=== PATIENT | male | born 1935 | race Caucasian/White ===

== ENCOUNTER 2021-06-28 06:34 | Day surgery (SDC) | payer MEDICARE ==
[2021-06-26 11:11] LABS: BASOPHILS % (AUTO) 0.7 % (0.0-5.0); EOSINOPHILS % (AUTO) 3.2 % (0.0-8.0); HEMATOCRIT 43.3 % (42-54); LYMPHOCYTES % (AUTO) 23.8 % (21.0-51.0); MEAN CORPUSCULAR HEMOGLOBIN 28.1 pg (27.0-33.0); MEAN CORPUSCULAR HGB CONC 31.4 g/dL (32.0-36.0); MEAN CORPUSCULAR VOLUME 89.5 fL (79-99); MONOCYTES % (AUTO) 11.6 % (3.0-13.0); NEUTROPHILS % (AUTO) 59.8 % (40.0-77.0); PLATELET COUNT (AUTO) 186 K/uL (130-400); RED BLOOD CELL COUNT(AUTO) 4.84 MIL/uL (4.50-6.20); RED CELL DISTRIBUTION WIDTH 18.7 % (11.0-15.5); WHITE BLOOD COUNT (AUTO) 6.9 K/uL (4.8-10.8)
[2021-06-26 11:16] LABS: CREATININE 2.2 mg/dL (0.5-1.5); POTASSIUM 4.8 mmol/L (3.5-5.1)
[2021-06-26 11:30] LABS: INR 1.02 (0.85-1.15); PROTHROMBIN TIME 11.1 SEC (9.6-11.6)
[2021-06-26 11:31] LABS: PARTIAL THROMBOPLASTIN TIME 27.4 SEC (26.3-35.5)
[2021-06-27 13:20] VITALS: BP 134/69
[~2021-06-28] VITALS: Ht 172.7 cm; Wt 91.8 kg
[2021-06-28] VITALS (12 sets, daily range): BP systolic 110–168; BP diastolic 78–99
[~2021-06-28 06:34] MED LIST: APIX5TAB PO; ATOR20TA65 PO; EZET10TA48 PO; FURO40TA5 PO; ISOS60TA77 PO; SACU1TAB PO
[2021-06-28] MEDS ORDERED: 0.9%NACL 1000ML 1,000 ML IV ONE (07:09)
[2021-06-28] MEDS ORDERED: BUPIVACAINE/PF 0.25% 30ML VIAL IJ ONE (09:26)
[2021-06-28] MEDS ORDERED: CEFAZOLIN SODIUM 1 GM VIAL ONE (09:27)
[2021-06-28] MEDS ORDERED: LIDOCAINE HCL 1% MDV 50ML VIAL ONE (09:27)
[2021-06-28] MEDS ORDERED: MIDAZOLAM HCL 1 MG/ML 2ML VIAL ONE ×3 (09:27→11:05)
[2021-06-28] MEDS ORDERED: MEPERIDINE-PF 25 MG/ML SYG ONE ×3 (09:27→11:05)
[2021-06-28] MEDS ORDERED: IODIXANOL 320 MG/ML 100 ML VIAL ONE (09:28)
== END 2021-06-28 18:45 | disposition home or self-care (01) ==
LOC: DAH 06:34
PROVIDERS: ATTEND Internal Medicine Cardiovascular Disease
DX: I25.5 Ischemic cardiomyopathy (principal); Z20.822 Contact with and (suspected) exposure to COVID-19; I49.5 Sick sinus syndrome; I45.2 Bifascicular block; I11.0 Hypertensive heart disease with heart failure; I50.42 Chronic combined systolic (congestive) and diastolic (congestive) heart failure; E78.5 Hyperlipidemia, unspecified; I25.10 Atherosclerotic heart disease of native coronary artery without angina pectoris; E66.9 Obesity, unspecified; I48.91 Unspecified atrial fibrillation; Z86.73 Personal history of transient ischemic attack (TIA), and cerebral infarction without residual deficits; Z98.890 Other specified postprocedural states; Z87.891 Personal history of nicotine dependence; Z68.31 Body mass index [BMI] 31.0-31.9, adult; Z95.1 Presence of aortocoronary bypass graft; Z79.01 Long term (current) use of anticoagulants; Z79.82 Long term (current) use of aspirin; Z79.899 Other long term (current) drug therapy
CPT/HCPCS: 33225; 33249; 36415; 71045; 80048; 85025; 85610; 85730; 93005; A4215; A4216; A4221; A4222; A4223 ×3; A4606; A4663; C1769 ×2; C1882; C1894; C1895; C1896; C1900; J0690; J2175 ×3; J2250 ×3; J3490 ×2; J7030; Q9967; 99156; 99157